=== PATIENT | female | born 1990 | race Two or more races ===

== ENCOUNTER → 2017-05-14 | Outpatient (CLI) | payer OTHER | END | disposition home or self-care (01) | LOC: RAD 12:33 | PROVIDERS: ATTEND Internal Medicine Gastroenterology | DX: R10.13 Epigastric pain (principal) | CPT/HCPCS: 74000 ==

== ENCOUNTER → 2019-01-03 | Outpatient (CLI) | payer OTHER | END | disposition home or self-care (01) | LOC: CFH 14:53 | PROVIDERS: ATTEND Psychiatry & Neurology Neurology | DX: M54.12 Radiculopathy, cervical region (principal); G62.9 Polyneuropathy, unspecified; M79.643 Pain in unspecified hand | CPT/HCPCS: 70551; 72141 ==

== ENCOUNTER 2019-01-14 23:06 | Emergency (ER) | payer OTHER ==
[~2019-01-14] VITALS: Ht 160 cm; Wt 50.0 kg
[2019-01-14 23:11] VITALS: BP 106/74
--- NOTE | 2019-01-14 23:19 | NUR ---
PT PRESENTED WITH C/O PAIN TO UPPER LIP, STATED THAT HER DOG BIT HER LIP THIS EVENING. PT RESTING ON GURNEY, SIDERAILS UP X2, CALL LIGHT WITHIN REACH. AWAITING ERP FOR EVAL AND ORDERS
[2019-01-14] MEDS ORDERED: DULO20CA45 PO (23:21)
[2019-01-14] MEDS ORDERED: DIPH,PERTUSS(ACELL),TET VAC/PF 0.5 ML IM-VACC ONE ×2 (23:30)
--- NOTE | 2019-01-14 23:34 | NUR ---
pt medicated per mar
== END 2019-01-15 00:07 | disposition home or self-care (01) ==
LOC: ED 01-15
DX: S00.571A Other superficial bite of lip, initial encounter (principal); W54.0XXA Bitten by dog, initial encounter; Y93.89 Activity, other specified; Y92.009 Unspecified place in unspecified non-institutional (private) residence as the place of occurrence of the external cause; Y99.8 Other external cause status
CPT/HCPCS: 90471; 90715